=== PATIENT | male | born 1950 | race Caucasian/White ===

== ENCOUNTER 2024-05-17 11:00 | Observation (INO) | payer MEDICARE, OTHER ==
[~2024-05-17] VITALS: Ht 175.3 cm; Wt 88.0 kg
[~2024-05-17 11:00] MED LIST: GUAI120018 PO
[2024-05-17 12:21] LABS: BASOPHILS % (AUTO) 0.3 % (0-1); EOSINOPHILS % (AUTO) 0.5 % (0-6); HEMATOCRIT 49.6 % (42.0-52.0); HEMOGLOBIN 17.1 g/dl (14.0-17.9); LYMPHOCYTES # (AUTO) 0.7 X10'3 (1.1-4.8); LYMPHOCYTES % (AUTO) 7.5 % (21-51); MEAN CORPUSCULAR HEMOGLOBIN 32.6 PG (27.0-31.0); MEAN CORPUSCULAR HGB CONC 34.5 g/dL (33.0-36.5); MEAN CORPUSCULAR VOLUME 94.4 FL (78-98); MEAN PLATELET VOLUME 7.6 FL (7.4-10.4); MONOCYTES # (AUTO) 0.7 X10'3 (0-0.9); MONOCYTES % (AUTO) 8.1 % (2-12); NEUTROPHILS # (AUTO) 7.6 X10'3 (1.8-7.7); NEUTROPHILS % (AUTO) 83.6 % (42-75); PLATELET COUNT 135 X10'3 (140-440); RED BLOOD COUNT 5.25 X10'6 (4.70-6.10); RED CELL DISTRIBUTION WIDTH 13.2 % (11.5-14.5); WHITE BLOOD COUNT 9.1 X10'3 (4.5-11.0)
[2024-05-17 12:37] LABS: ALBUMIN 3.7 G/DL (3.4-5.0); ANION GAP 9 (8-16); BLOOD UREA NITROGEN 11 MG/DL (7-18); BUN/CREATININE RATIO 10.9 (10.0-20.0); CALCIUM 8.2 MG/DL (8.5-10.1); CHLORIDE 102 MMOL/L (99-107); CREATININE 1.01 MG/DL (0.60-1.10); GLUCOSE 103 MG/DL (70-104); POTASSIUM 3.8 MMOL/L (3.5-5.1); SODIUM 138 MMOL/L (135-145); TOTAL CARBON DIOXIDE 26.7 MMOL/L (24-32); eCRCL 66 ML/MIN; eGFR 73 ML/MIN
[2024-05-17] MEDS: enoxaparin 100mg/ml syringe SUBCUT ONE (13:14)
[2024-05-17] MEDS ORDERED: LISI20TA28 PO (13:16)
[2024-05-17] MEDS ORDERED: magnesium sulf-water 2g/50mL 50 ML IV PRN (13:25)
[2024-05-17] MEDS ORDERED: HYDROcodone/acetaminophen 5mg/325mg tablet PO PRN (13:25)
[2024-05-17] MEDS ORDERED: HYDROcodone/acetaminophen 10/325mg tab PO PRN (13:25)
[2024-05-17] MEDS ORDERED: potassium Cl 40MEQ/1/2NS 520ml 520 ML IV PRN (13:25)
[2024-05-17] MEDS ORDERED: magnesium Cl slow-release 64mg tablet PO PRN (13:25)
[2024-05-17] MEDS ORDERED: acetaminophen 325mg tablet PO PRN ×2 (13:25)
[2024-05-17] MEDS ORDERED: magnesium sulf-water 4G/100mL 100 ML IV PRN (13:25)
[2024-05-17] MEDS ORDERED: potassium Cl 20 mEq SR tablet PO PRN ×2 (13:25)
[2024-05-17] MEDS ORDERED: mag hydrox/Alum hydrox/simeth 30ml oral suspension PO PRN (13:25)
[2024-05-17] MEDS ORDERED: magnesium hydroxide 30ml (MOM) UD suspension PO PRN (13:25)
[2024-05-17] MEDS ORDERED: morphine 2 MG/ML inj. syringe IV PRN (13:25)
[2024-05-17] MEDS ORDERED: hydrALAZINE 20mg/ml inj. IV PRN (13:30)
[2024-05-17] MEDS ORDERED: LORazepam 1 MG tablet PO PRN (15:20)
[2024-05-17] MEDS ORDERED: haloperidol lactate 5mg/ml inj IM PRN (15:20)
[2024-05-17] MEDS ORDERED: haloperidol 5mg tablet PO PRN (15:20)
[2024-05-17] MEDS ORDERED: LORazepam 2 mg/ml vial IV PRN (15:20)
[2024-05-17] MEDS: folic acid 1mg tablet PO SCH (15:38)
[2024-05-17] MEDS: lisinopril 10 MG tablet PO ONE (15:38)
[2024-05-17] MEDS: thiamine 100mg tablet PO SCH (15:38)
[2024-05-17] MEDS: normal saline 1000ml 1,000 ML IV SCH (15:39)
[2024-05-17] MEDS: ondansetron/PF 4mg/2ml inj IV PRN (15:58)
[2024-05-17] MEDS: morphine 2 MG/ML inj. syringe IV PRN (15:58)
[2024-05-17] MEDS: docusate sod 100mg capsule PO SCH (20:00)
[2024-05-17] MEDS ORDERED: apixaban 5mg tablet PO SCH ×2 (20:00)
[2024-05-17] MEDS: K and/or MAG REPLACEMENT MC SCH (20:00)
[2024-05-17] MEDS: enoxaparin 100mg/ml syringe SUBCUT SCH (20:55)
[2024-05-17 22:00] VITALS: BP 154/90; PULSE 81; RESP 13; TEMP 98.9; O2SAT 94
[2024-05-18 06:00] VITALS: BP 157/88; PULSE 72; RESP 16; TEMP 98; O2SAT 94
[2024-05-18 06:32] LABS: MAGNESIUM 2.3 MG/DL (1.5-2.4); POTASSIUM 3.8 MMOL/L (3.5-5.1)
[2024-05-18 08:00] VITALS: RESP 16; O2SAT 94
[2024-05-18 08:18] LABS: BASOPHILS % (AUTO) 0.6 % (0-1); EOSINOPHILS # (AUTO) 0.1 X10'3 (0-0.9); EOSINOPHILS % (AUTO) 1.9 % (0-6); HEMATOCRIT 45.9 % (42.0-52.0); HEMOGLOBIN 15.8 g/dl (14.0-17.9); LYMPHOCYTES % (AUTO) 13.8 % (21-51); MEAN CORPUSCULAR HEMOGLOBIN 32.6 PG (27.0-31.0); MEAN CORPUSCULAR HGB CONC 34.5 g/dL (33.0-36.5); MEAN CORPUSCULAR VOLUME 94.6 FL (78-98); MEAN PLATELET VOLUME 8.1 FL (7.4-10.4); MONOCYTES # (AUTO) 0.7 X10'3 (0-0.9); MONOCYTES % (AUTO) 9.4 % (2-12); NEUTROPHILS # (AUTO) 5.4 X10'3 (1.8-7.7); NEUTROPHILS % (AUTO) 74.3 % (42-75); PLATELET COUNT 131 X10'3 (140-440); RED BLOOD COUNT 4.85 X10'6 (4.70-6.10); RED CELL DISTRIBUTION WIDTH 13.1 % (11.5-14.5); WHITE BLOOD COUNT 7.3 X10'3 (4.5-11.0)
[2024-05-18 08:38] LABS: ALANINE AMINOTRANSFERASE 18 U/L (12-78); ALBUMIN 3.1 G/DL (3.4-5.0); ALBUMIN/GLOBULIN RATIO 0.9 (1.1-1.5); ALKALINE PHOSPHATASE 80 IU/L (46-116); ANION GAP 9 (8-16); ASPARTATE AMINO TRANSFERASE 19 U/L (10-37); BILIRUBIN,TOTAL 1.6 MG/DL (0.1-1.0); BLOOD UREA NITROGEN 14 MG/DL (7-18); CHLORIDE 104 MMOL/L (99-107); CREATININE 1.08 MG/DL (0.60-1.10); GLUCOSE 104 MG/DL (70-104); SODIUM 139 MMOL/L (135-145); TOTAL CARBON DIOXIDE 26.1 MMOL/L (24-32); TOTAL PROTEIN 6.4 G/DL (6.4-8.2); eCRCL 62 ML/MIN; eGFR 67 ML/MIN
[2024-05-18] MEDS: lisinopril 20mg tablet PO SCH (09:16)
[2024-05-18 10:00] VITALS: BP 157/77; PULSE 77; RESP 18; TEMP 97.6; O2SAT 94
[2024-05-18] MEDS ORDERED: APIX5TAB3 PO (17:48)
== END 2024-05-18 18:35 | disposition home or self-care (01) ==
LOC: ER 11:00 → INTOOBSV 13:29 → ED HOLD 13:29 → UNDOADMOB 13:29 → ED HOLD 14:59 → ORTHO 4S 18:23 → UNDODISOB 05-18 18:35
PROVIDERS: ADMIT Nurse Practitioner Family; ATTEND Nurse Practitioner Family
DX: I82.491 Acute embolism and thrombosis of other specified deep vein of right lower extremity (principal); I10 Essential (primary) hypertension; I82.411 Acute embolism and thrombosis of right femoral vein; F10.20 Alcohol dependence, uncomplicated; Z79.01 Long term (current) use of anticoagulants; Z79.899 Other long term (current) drug therapy; Y90.9 Presence of alcohol in blood, level not specified
CPT/HCPCS: 80048; 80053; 83735; 93005; 93971; 96361; 96372; 96374; 96375; 99285; G0378; 36415; 85025; 87081; J1650; J2270; J2405; J7030